=== PATIENT | female | born 1995 | race Caucasian/White ===

== ENCOUNTER 2021-04-02 23:29 | Emergency (ER) | payer OTHER ==
[2021-04-03 04:33] LABS: HEMOGLOBIN 12.8 gm/dl (12.3-15.3); RED BLOOD COUNT 4.43 M/UL (4.00-5.10); WHITE BLOOD COUNT 8.3 K/UL (4.5-11.0)
[2021-04-03 04:53] LABS: BUN/CREATININE RATIO 14 (0-10)
== END 2021-04-03 05:30 | disposition home or self-care (01) ==
LOC: ER1 23:29
PROVIDERS: Emergency Medicine
DX: O03.9 Complete or unspecified spontaneous abortion without complication (principal)
CPT/HCPCS: 80053; 81001; 84702; 85025; 99284